=== PATIENT | female | born 1965 | race Caucasian/White ===

== ENCOUNTER 2019-01-25 15:43 | Observation (INO) ==
[2019-01-25 16:54] LABS: Bilirubin,Urine Negative (Negative); Blood,Urine Negative (Negative); Clarity,Urine Clear (Clear); Color,Urine Yellow (Yellow); Glucose,Urine (UA) Normal (Normal); Ketones,Urine Negative (Negative); Leukocyte Esterase,Urine Negative (Negative); Nitrite,Urine Negative (Negative); Protein,Urine Negative (Neg-Trace); Urobilinogen,Urine Normal (Normal)
[2019-01-25 16:54] LABS: Basophils # 0.1 K/mcL (0.0-0.2); Basophils % 0.7 %; Eosinophils # 0.1 K/mcL (0.0-0.6); Eosinophils % 0.8 %; Hematocrit 44.3 % (35.3-44.9); Hemoglobin 14.7 g/dL (11.5-15.4); Immature Granulocytes % 0.3 % (0-4); Lymphocytes # 2.3 K/mcL (0.6-4.6); Lymphocytes % 30.5 %; Mean Corpuscular HGB Conc 33.2 g/dL (31.6-35.5); Mean Corpuscular Hemoglobin 30.6 pg (28.0-33.3); Mean Corpuscular Volume 92.3 fL (83.0-100.0); Mean Platelet Volume 9.5 fL (9.4-12.4); Monocytes # 0.6 K/mcL (0.0-1.3); Monocytes % 7.9 %; Neutrophils # 4.5 K/mcL (1.6-8.9); Platelet Count 297 K/mcL (140-400); Red Cell Distribution Width 12.5 % (11.5-14.5); Segmented Neutrophils % 59.8 %; White Blood Count 7.6 K/mcL (4.3-11.1)
--- NOTE | 2019-01-25 17:02 | Emergency Department Note ---
Disposition Clinical Impression: Suicidal ideation Disposition: Still a Patient Referrals: NONE,PCP [Primary Care Provider] - Time of Disposition: 17:02 General Adult HPI - General Chief complaint: ED Psychiatric Symptoms Stated complaint: Anxiety/Depression Time Seen by Provider: 01/25/19 16:13 Source: patient Limitations: no limitations Nursing Notes Reviewed: Yes Vital Signs Reviewed: Yes - History of Present Illness HPI Narrative: Attestation note: Patient was seen with the emergency medicine resident/nurse practitioner/physician assistant professor sculpture/transitional resident/medical student: Dr. Campos [place], I was present for the significant portions of the performance and interpretation of procedures and EKGs. I have personally performed a face to face evaluation on this patient. I have reviewed and agree with history and physical examination patient management and disposition. 53-year-old female history of anxiety and depression of the lower prior hospital admissions presents with suicidal ideations without discrete plan. Patient is awake alert physical examination is benign afebrile with stable vital signs. Patient will undergo medical clearance and evaluation by mental health services. Due for concerns about the patient's suicidality pink slip has been executed and is in the chart. Disposition pending Pain Scale: 5 - Related Data Home Medications Medication Instructions Recorded Confirmed Alprazolam [Xanax] 0.5 mg PO TID PRN 04/14/15 03/23/18 Rizatriptan Benzoate [Maxalt] 10 mg PO PRN PRN 04/14/15 03/23/18 Topiramate [Topamax] 50 mg PO DAILY 04/14/15 03/23/18 Citalopram Hydrobromide [Celexa] 20 mg PO DAILY 02/07/17 03/23/18 Tramadol HCl [Ultram] 50 mg PO BID PRN 02/07/17 03/23/18 Hyoscyamine Sulfate 03/23/18 Prazosin HCl 03/23/18 Vitamin Tablet 03/23/18 Saxenda 03/23/18 TraZODone 03/23/18 Cymbalta 06/04/18 Previous Rx's Medication Instructions Recorded Amoxicillin 875 mg PO BID #20 tablet 03/23/18 Azithromycin [Zithromax] 250 mg PO DAILY #6 tablet 06/04/18 Albuterol Sulfate [Albuterol 2 puff IH Q4HR PRN #1 hfa.aer.ad 09/11/18 Inhaler] Promethazine/Dextromethorphan 5 ml PO Q6HR PRN #90 ml 09/11/18 [Promethazine-Dm Syrup] predniSONE [PredniSONE] 20 mg PO DAILY #18 tablet 09/11/18 Allergies Allergy/AdvReac Type Severity Reaction Status Date / Time No Known Allergies Allergy Verified 09/30/18 15:42 Past Medical History - Past Medical History Medical history: Reports: migraine, other Surgical history: Reports: cholecystectomy Psychiatric history: Reports: anxiety, depression - Social History Smoking Status: Never smoker Smokeless Tobacco Status: No Alcohol use: Reports: occasionally Drug use: Reports: none Physical Exam - General Limitations: no limitations General appearance: alert, in no apparent distress Course Vital Signs Temperature 98.4 F 01/25/19 15:47 Pulse Rate 71 01/25/19 15:47 Respiratory Rate 16 01/25/19 15:47 Blood Pressure 132/84 01/25/19 15:47 O2 Sat by Pulse Oximetry 95 01/25/19 15:47 Temperature 98.4 F 01/25/19 15:47 Pulse Rate 71 01/25/19 15:47 Respiratory Rate 16 01/25/19 15:47 Blood Pressure 132/84 01/25/19 15:47 O2 Sat by Pulse Oximetry 95 01/25/19 15:47 Oxygen Delivery Oxygen Delivery Room Air Medical Decision Making - Lab Data Lab Results 01/25/19 01/25/19 Range/Units 16:32 16:32 Urine Test Negative (Negative) Ur Drug Screen Interp See Below
[2019-01-25 17:12] LABS: Acetaminophen < 10 mcg/mL (10-20); BUN/Creatinine Ratio 19 (6-26); Blood Urea Nitrogen 16 mg/dL (6-20); Calcium 9.8 mg/dL (8.6-10.3); Carbon Dioxide 29 mEq/L (23-29); Chloride 102 mEq/L (98-107); Ethanol < 10 mg/dL (Less than 10); Glucose 116 mg/dL (70-105); Osmolality,Calculated 292 (280-300); Potassium 3.3 mEq/L (3.5-5.1); Salicylate < 2.5 mg/dL (15.0-30.0); Sodium 140 mEq/L (136-145); eGFR For African Americans > 60 (> 60); eGFR For Non-African Americans > 60 (> 60)
[2019-01-25] MEDS ORDERED: Topiramate 100 MG TABLET PO STA (17:12)
[2019-01-25 17:19] LABS: Amphetamine Screen,Urine Negative ng/mL (Cutoff=1000); Barbiturate Screen,Urine Negative ng/mL (Cutoff=200); Benzodiazepines Screen,Urine Positive ng/mL (Cutoff=200); Cannabinoid Screen,Urine Negative ng/mL (Cutoff = 50); Cocaine Screen,Urine Negative ng/mL (Cutoff= 300); Opiate Screen,Urine Negative ng/mL (Cutoff=300); Phencyclidine Screen,Urine Negative ng/mL (Cutoff=25)
[2019-01-25] MEDS ORDERED: SUMAtriptan succinate 50 MG TABLET PO ONE (17:48)
--- NOTE | 2019-01-25 19:31 | Emergency Department Note ---
Disposition Clinical Impression: Suicidal ideation Disposition: Admitted As Inpatient Condition: Fair Referrals: NONE,PCP [Primary Care Provider] - Forms: ED Satisfaction Letter Time of Disposition: 20:36 General Adult HPI - General Chief complaint: ED Psychiatric Symptoms Stated complaint: Anxiety/Depression Time Seen by Provider: 01/25/19 16:13 Source: patient Mode of arrival: ambulatory Limitations: no limitations Nursing Notes Reviewed: Yes Vital Signs Reviewed: Yes - History of Present Illness HPI Narrative: Patient is a 53-year-old female with past medical history of anxiety and depression presents to the ED for evaluation of SI. Patient states that over the past 2 years she has been depressed because her daughter has taken her granddaughter and has not made contact with her. States since then she has had thoughts of ending her life. States recently she is having a more difficult time dealing with these thoughts and states that she thought of walking on front of traffic tender life. She denies SI. Denies suicidal attempt in the past. Denies any drugs or regular alcohol use. She was seen at [facility] and referred here for her SI. Pain Scale: 5 - Related Data Home Medications Medication Instructions Recorded Confirmed Alprazolam [Xanax] 0.5 mg PO TID PRN 04/14/15 03/23/18 Rizatriptan Benzoate [Maxalt] 10 mg PO PRN PRN 04/14/15 03/23/18 Topiramate [Topamax] 50 mg PO DAILY 04/14/15 03/23/18 Citalopram Hydrobromide [Celexa] 20 mg PO DAILY 02/07/17 03/23/18 Tramadol HCl [Ultram] 50 mg PO BID PRN 02/07/17 03/23/18 Hyoscyamine Sulfate 03/23/18 Prazosin HCl 03/23/18 Vitamin Tablet 03/23/18 Saxenda 03/23/18 TraZODone 03/23/18 Cymbalta 06/04/18 Previous Rx's Medication Instructions Recorded Amoxicillin 875 mg PO BID #20 tablet 03/23/18 Azithromycin [Zithromax] 250 mg PO DAILY #6 tablet 06/04/18 Albuterol Sulfate [Albuterol 2 puff IH Q4HR PRN #1 hfa.aer.ad 09/11/18 Inhaler] Promethazine/Dextromethorphan 5 ml PO Q6HR PRN #90 ml 09/11/18 [Promethazine-Dm Syrup] predniSONE [PredniSONE] 20 mg PO DAILY #18 tablet 09/11/18 Allergies Allergy/AdvReac Type Severity Reaction Status Date / Time No Known Allergies Allergy Verified 09/30/18 15:42 All systems ED: reviewed and negative except as stated. Review of Systems: As Per HPI Psychiatric: Reports: anxiety, depression, suicidal thoughts. Denies: homicidal thoughts, auditory hallucinations, visual hallucinations Past Medical History - Past Medical History Attestation: Yes The following information was validated with the patient. Medical history: Reports: migraine, other Surgical history: Reports: cholecystectomy Psychiatric history: Reports: anxiety, depression - Social History Smoking Status: Never smoker Smokeless Tobacco Status: No Alcohol use: Reports: occasionally Drug use: Reports: none Physical Exam CONSTITUTIONAL: Alert and oriented X3, well-nourished, well appearing, in no apparent distress HEAD: Normocephalic; atraumatic. EYES: PERRL, no scleral icterus. NOSE: The nose is normal in appearance without rhinorrhea RESP: Normal chest excursion with respiration; breath sounds clear and equal bilaterally; no wheezes, rhonchi, or rales CARD: Regular rhythm, without murmurs, rub or gallop ABD: Non-distended; non-tender, soft,without rigidity, rebound or guarding SKIN: Normal for age and race; warm and dry; no apparent lesions - General Limitations: no limitations General appearance: alert, in no apparent distress - Psychiatric Psychiatric exam: Present: normal affect, depressed, suicidal ideation. Absent: homicidal ideation - Expanded Psychiatric Exam Expanded psych exam: Absent: auditory hallucinations, visual hallucinations Course Course Narrative: Patient presents for evaluation of suicidal ideation. She will undergo medical clearance and evaluation by the 1 on a psychiatric team. - Reevaluation(s) Reevaluation #1: Patient accepted to 1A services. Vital Signs Temperature 98.4 F 01/25/19 15:47 Pulse Rate 71 01/25/19 15:47 Respiratory Rate 16 01/25/19 15:47 Blood Pressure 132/84 01/25/19 15:47 O2 Sat by Pulse Oximetry 95 01/25/19 15:47 Temperature 98.4 F 01/25/19 15:47 Pulse Rate 71 01/25/19 15:47 Respiratory Rate 16 01/25/19 15:47 Blood Pressure 132/84 01/25/19 15:47 O2 Sat by Pulse Oximetry 95 01/25/19 15:47 Oxygen Delivery Oxygen Delivery Room Air Medical Decision Making - Medical Records Medical records reviewed: Yes I reviewed the patient's medical records. - Lab Data Lab results reviewed: Yes I reviewed the patient's lab results. Result diagrams: 01/25/19 16:39 01/25/19 16:39 Lab Results 01/25/19 01/25/19 01/25/19 Range/Units 16:32 16:32 16:32 WBC (4.3-11.1) K/mcL RBC (3.82-4.97) M/mcL Hgb (11.5-15.4) g/dL Hct (35.3-44.9) % MCV (83.0-100.0) fL MCH (28.0-33.3) pg MCHC (31.6-35.5) g/dL RDW (11.5-14.5) % Plt Count (140-400) K/mcL MPV (9.4-12.4) fL Immature Gran % (0-4) % Seg Neutrophils % % Lymphocytes % % Monocytes % % Eosinophils % % Basophils % % Neutrophils # (1.6-8.9) K/mcL Lymphocytes # (0.6-4.6) K/mcL Monocytes # (0.0-1.3) K/mcL Eosinophils # (0.0-0.6) K/mcL Basophils # (0.0-0.2) K/mcL Sodium (136-145) mEq/L Potassium (3.5-5.1) mEq/L Chloride (98-107) mEq/L Carbon Dioxide (23-29) mEq/L BUN (6-20) mg/dL Creatinine (0.60-1.20) mg/dL Est GFR ( Amer) (> 60) Est GFR (Non-Af Amer) (> 60) BUN/Creatinine Ratio (6-26) Glucose (70-105) mg/dL Calculated Osmolality (280-300) Calcium (8.6-10.3) mg/dL Urine Color Yellow (Yellow) Urine Clarity Clear (Clear) Urine pH 6.0 (5.0-8.0) pH Units Ur Specific [place] 1.010 (1.010-1.025) Urine Protein Negative (Neg-Trace) mg/dL Urine Glucose (UA) Normal (Normal) mg/dL Urine Ketones Negative (Negative) mg/dL Urine Blood Negative (Negative) Urine Nitrite Negative (Negative) Urine Bilirubin Negative (Negative) Urine Urobilinogen Normal (Normal) mg/dL Ur Leukocyte Esterase Negative (Negative) Urine Test Negative (Negative) Salicylates (15.0-30.0) mg/dL Urine Opiates Screen Negative (Drfljz=597) ng/mL Acetaminophen (10-20) mcg/mL Ur Barbiturates Screen Negative (Lgvdle=517) ng/mL Ur Phencyclidine Scrn Negative (Cutoff=25) ng/mL Ur Amphetamines Screen Negative (Ywcedb=5170) ng/mL U Benzodiazepines Scrn Positive H (Uloseq=545) ng/mL Urine Cocaine Screen Negative (Cutoff= 300) ng/mL U Marijuana (THC) Screen Negative (Cutoff = 50) ng/mL Ur Drug Screen Interp See Below Ethyl Alcohol (Less than 10) mg/dL 01/25/19 01/25/19 Range/Units 16:39 16:39 WBC 7.6 (4.3-11.1) K/mcL RBC 4.80 (3.82-4.97) M/mcL Hgb 14.7 (11.5-15.4) g/dL Hct 44.3 (35.3-44.9) % MCV 92.3 (83.0-100.0) fL MCH 30.6 (28.0-33.3) pg MCHC 33.2 (31.6-35.5) g/dL RDW 12.5 (11.5-14.5) % Plt Count 297 (140-400) K/mcL MPV 9.5 (9.4-12.4) fL Immature Gran % 0.3 (0-4) % Seg Neutrophils % 59.8 % Lymphocytes % 30.5 % Monocytes % 7.9 % Eosinophils % 0.8 % Basophils % 0.7 % Neutrophils # 4.5 (1.6-8.9) K/mcL Lymphocytes # 2.3 (0.6-4.6) K/mcL Monocytes # 0.6 (0.0-1.3) K/mcL Eosinophils # 0.1 (0.0-0.6) K/mcL Basophils # 0.1 (0.0-0.2) K/mcL Sodium 140 (136-145) mEq/L Potassium 3.3 L (3.5-5.1) mEq/L Chloride 102 (98-107) mEq/L Carbon Dioxide 29 (23-29) mEq/L BUN 16 (6-20) mg/dL Creatinine 0.86 (0.60-1.20) mg/dL Est GFR ( Amer) > 60 (> 60) Est GFR (Non-Af Amer) > 60 (> 60) BUN/Creatinine Ratio 19 (6-26) Glucose 116 H (70-105) mg/dL Calculated Osmolality 292 (280-300) Calcium 9.8 (8.6-10.3) mg/dL Urine Color (Yellow) Urine Clarity (Clear) Urine pH (5.0-8.0) pH Units Ur Specific [place] (1.010-1.025) Urine Protein (Neg-Trace) mg/dL Urine Glucose (UA) (Normal) mg/dL Urine Ketones (Negative) mg/dL Urine Blood (Negative) Urine Nitrite (Negative) Urine Bilirubin (Negative) Urine Urobilinogen (Normal) mg/dL Ur Leukocyte Esterase (Negative) Urine Test (Negative) Salicylates < 2.5 L (15.0-30.0) mg/dL Urine Opiates Screen (Hmlrkk=796) ng/mL Acetaminophen < 10 L (10-20) mcg/mL Ur Barbiturates Screen (Sguhjz=821) ng/mL Ur Phencyclidine Scrn (Cutoff=25) ng/mL Ur Amphetamines Screen (Jnhyzl=4220) ng/mL U Benzodiazepines Scrn (Zylqat=029) ng/mL Urine Cocaine Screen (Cutoff= 300) ng/mL U Marijuana (THC) Screen (Cutoff = 50) ng/mL Ur Drug Screen Interp Ethyl Alcohol < 10 (Less than 10) mg/dL
[2019-01-25] MEDS ORDERED: traZODone 50 MG TABLET PO PRN (20:52)
[2019-01-25] MEDS ORDERED: *HR* LORazepam 2 MG/ML VIAL IM PRN (20:52)
[2019-01-25] MEDS ORDERED: *HR* LORazepam 1 MG TABLET PO PRN (20:52)
[2019-01-25] MEDS ORDERED: MOM Conc 10 ML UD.LIQ PO PRN (20:52)
[2019-01-25] MEDS ORDERED: Haloperidol Lactate 5 MG/ML VIAL IM PRN (20:52)
[2019-01-25] MEDS ORDERED: Ibuprofen 400 MG TABLET PO PRN (20:52)
[2019-01-25] MEDS ORDERED: Mag Hydrox/Al Hydrox/Simeth 30 ML UDC PO PRN (20:52)
[2019-01-25] MEDS ORDERED: hydrOXYzine pamoate 25 MG CAPSULE PO PRN (20:52)
[2019-01-25] MEDS ORDERED: (Rizatriptan Benzoate [Maxalt] 10 MG) PO PRN (23:10)
[2019-01-26] MEDS: Topiramate 100 MG TABLET PO SCH ×2 (00:08→08:39)
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
[2019-01-26 12:46] VITALS: BP 117/81
== END 2019-01-26 13:25 | disposition home or self-care (01) ==
LOC: EMEROOARM 15:43 → 1ANU 15:43
PROVIDERS: ADMIT Psychiatry & Neurology Psychiatry; ATTEND Psychiatry & Neurology Psychiatry

== ENCOUNTER 2021-01-29 08:53 | Inpatient (IN) ==
[2021-01-29 09:53] LABS: Bilirubin,Urine Negative (Negative); Blood,Urine Negative (Negative); Clarity,Urine Clear (Clear); Color,Urine Light-Yellow (Yellow); Glucose,Urine (UA) Normal (Normal); Ketones,Urine Negative (Negative); Leukocyte Esterase,Urine Negative (Negative); Nitrite,Urine Negative (Negative); PH,Urine 6.5 pH Units (5.0-8.0); Protein,Urine Negative (Neg-Trace); Specific Gravity,Urine 1.015 (1.010-1.025); Urobilinogen,Urine Normal (Normal)
[2021-01-29 10:31] LABS: Amphetamine Screen,Urine Negative ng/mL (Cutoff=1000); Barbiturate Screen,Urine Negative ng/mL (Cutoff=200); Benzodiazepines Screen,Urine Positive ng/mL (Cutoff=200); Cannabinoid Screen,Urine Negative ng/mL (Cutoff = 50); Cocaine Screen,Urine Negative ng/mL (Cutoff= 300); Opiate Screen,Urine Negative ng/mL (Cutoff=300); Phencyclidine Screen,Urine Negative ng/mL (Cutoff=25)
[2021-01-29 10:42] LABS: Acetaminophen < 10 mcg/mL (10-20); BUN/Creatinine Ratio 18 (6-26); Blood Urea Nitrogen 14 mg/dL (6-20); Calcium 9.1 mg/dL (8.6-10.3); Carbon Dioxide 24 mEq/L (23-29); Chloride 107 mEq/L (98-107); Chol/HDL Ratio 5.9 (0-4.9); Cholesterol 217 mg/dL (< 200); Ethanol < 10 mg/dL (Less than 10); Glucose 98 mg/dL (70-105); HDL Cholesterol 37 mg/dL (40-59); LDL Cholesterol,Calculated 122 mg/dL (< 100); Osmolality,Calculated 288 (280-300); Potassium 3.5 mEq/L (3.5-5.1); Salicylate < 2.5 mg/dL (15.0-30.0); Sodium 139 mEq/L (136-145); Triglycerides 288 mg/dL (< 150); eGFR For African Americans > 60 (> 60); eGFR For Non-African Americans > 60 (> 60)
[2021-01-29 10:52] LABS: Adenovirus Not Detected (Not Detect); Bordetella Pertussis Not Detected (Not Detect); Chlamydophila pneumoniae Not Detected (Not Detect); Coronavirus 229E Not Detected (Not Detect); Coronavirus HKU1 Not Detected (Not Detect); Coronavirus NL63 Not Detected (Not Detect); Coronavirus OC43 Not Detected (Not Detect); Human Metapneumovirus Not Detected (Not Detect); Human Rhinovirus/Enterovirus Not Detected (Not Detect); Influenza A Subtype 2009 H1 Not Detected (Not Detect); Influenza B Not Detected (Not Detect); Mycoplasma pneumoniae Not Detected (Not Detect); Parainfluenza Virus 1 Not Detected (Not Detect); Parainfluenza Virus 2 Not Detected (Not Detect); Parainfluenza Virus 3 Not Detected (Not Detect); Parainfluenza Virus 4 Not Detected (Not Detect); Respiratory Syncytial Virus Not Detected (Not Detect); SARS-CoV-2 Not Detected (Not Detect)
[2021-01-29 12:09] LABS: Basophils % 0.5 %; Eosinophils # 0.1 K/mcL (0.0-0.6); Eosinophils % 1.6 %; Hematocrit 44.1 % (35.3-44.9); Immature Granulocytes % 0.3 % (0-4); Lymphocytes # 2.3 K/mcL (0.6-4.6); Lymphocytes % 31.3 %; Mean Corpuscular HGB Conc 31.7 g/dL (31.6-35.5); Mean Corpuscular Hemoglobin 30.2 pg (28.0-33.3); Mean Platelet Volume 9.4 fL (9.4-12.4); Monocytes # 0.6 K/mcL (0.0-1.3); Monocytes % 7.5 %; Neutrophils # 4.4 K/mcL (1.6-8.9); Platelet Count 282 K/mcL (140-400); Red Blood Count 4.64 M/mcL (3.82-4.97); Red Cell Distribution Width 13.1 % (11.5-14.5); Segmented Neutrophils % 58.8 %; White Blood Count 7.4 K/mcL (4.3-11.1)
[2021-01-29 12:17] LABS: Estimated Average Glucose 117 mg/dl; Hemoglobin A1C 5.7 %
[2021-01-29] MEDS ORDERED: Haloperidol Lactate 5 MG/ML VIAL IM PRN (14:28)
[2021-01-29] MEDS ORDERED: *HR* LORazepam 2 MG/ML VIAL IM PRN (14:28)
[2021-01-29] MEDS ORDERED: Acetaminophen 325 MG TABLET PO PRN (14:28)
[2021-01-29] MEDS ORDERED: MOM Conc 10 ML UD.LIQ PO PRN (14:28)
[2021-01-29] MEDS ORDERED: *HR* LORazepam 1 MG TABLET PO PRN (14:28)
[2021-01-29] MEDS ORDERED: haloperidoL 5 MG TABLET PO PRN (14:28)
[2021-01-29] MEDS ORDERED: Mag Hydrox/Al Hydrox/Simeth 30 ML UDC PO PRN (14:28)
[2021-01-29] MEDS ORDERED: hydrOXYzine pamoate 25 MG CAPSULE PO PRN (14:28)
[2021-01-29] MEDS ORDERED: ALPRAZolam 0.5 MG TABLET PO PRN (14:31)
[2021-01-29] MEDS: SUMAtriptan succinate 50 MG TABLET PO PRN (16:26)
[2021-01-29] MEDS: traZODone 50 MG TABLET PO PRN (21:47)
[2021-01-29] MEDS: valACYclovir 500 MG TABLET PO SCH (21:50)
[2021-01-30] MEDS: SUMAtriptan succinate 50 MG TABLET PO PRN (06:36)
[2021-01-30] MEDS: Levothyroxine 25 MCG TABLET PO SCH (06:36)
[2021-01-30] MEDS: hydroCHLOROthiazide 25 MG TABLET PO SCH (09:12)
[2021-01-30] MEDS: valACYclovir 500 MG TABLET PO SCH ×2 (09:16→23:14)
[2021-01-30] MEDS ORDERED: Fluticasone Propionate Nasal 50 MCG/SPRAY BOTTLE NS PRN (12:50)
[2021-01-30] MEDS: traZODone 50 MG TABLET PO PRN (21:52)
[2021-01-31] MEDS: Levothyroxine 25 MCG TABLET PO SCH (06:30)
[2021-01-31] MEDS ORDERED: Levothyroxine 25 MCG TABLET PO SCH (06:30)
[2021-01-31] MEDS: valACYclovir 500 MG TABLET PO SCH ×2 (08:48→09:12)
[2021-01-31] MEDS: hydroCHLOROthiazide 25 MG TABLET PO SCH (08:48)
[2021-01-31] MEDS ORDERED: hydroCHLOROthiazide 25 MG TABLET PO SCH (09:00)
[2021-01-31] MEDS ORDERED: Cyanocobalamin (B-12) 1,000 MCG TABLET PO SCH (09:00)
[2021-01-31 09:06] VITALS: BP 130/84
[2021-01-31] MEDS ORDERED: valACYclovir 500 MG TABLET PO PRN (09:09)
== END 2021-01-31 16:00 | disposition home or self-care (01) | DRG 885 ==
LOC: EMEROOARM 08:53 → 1ANU 13:16
PROVIDERS: ADMIT Psychiatry & Neurology Forensic Psychiatry; ATTEND Psychiatry & Neurology Forensic Psychiatry